=== PATIENT | female | born 1950 | race Caucasian/White ===

== ENCOUNTER → 2017-12-15 | Outpatient (CLI) | payer OTHER ==
[~2017-12-15] MED LIST: ASPIRIN325 MG PO; CALCIUM 500 MG1 EACH PO; CAPOTEN50 MG PO; CARDIZEM60 MG PO; DAILY VITAMIN1 EAC8 PO; HYDROCHLOROTHIA25 MG PO; LEXAPRO10 MG PO; LIPITOR20 MG PO; LOPRESSOR50 MG PO; NIACOR500 MG PO; T:SLIM1 EAC1 MC; TOVIAZ4 MG PO
== END | disposition home or self-care (01) ==
LOC: RES 13:00
DX: R09.02 Hypoxemia (principal); R06.09 Other forms of dyspnea; R53.83 Other fatigue
CPT/HCPCS: 94618